=== PATIENT | female | born 1985 | race Caucasian/White ===

== ENCOUNTER 2023-10-07 06:30 | Day surgery (SDC) | payer OTHER ==
[2023-10-07] MEDS ORDERED: fentaNYL 100 MCG/2 ML SDV IV ONE (06:31)
[2023-10-07] MEDS ORDERED: Midazolam 1 MG/ML 2 ML SDV IV ONE (06:31)
[2023-10-07] MEDS ORDERED: fentaNYL 100 MCG/2 ML SDV ONE (06:39)
[2023-10-07] MEDS ORDERED: Midazolam 1 MG/ML 2 ML SDV ONE (06:39)
[2023-10-07] MEDS: fentaNYL 100 MCG/2 ML SDV IV ONE ×5 (07:21→07:39)
[2023-10-07] MEDS: Midazolam 1 MG/ML 2 ML SDV IV ONE ×6 (07:22→07:33)
[2023-10-07] MEDS: Dextrose 5%-0.45% NaCl 1,000 ML IV SCH (08:02)
== END 2023-10-07 09:54 | disposition home or self-care (01) ==
LOC: DL.ENDO 06:30
PROVIDERS: ATTEND Internal Medicine Gastroenterology
DX: Z12.11 Encounter for screening for malignant neoplasm of colon (principal); D12.5 Benign neoplasm of sigmoid colon; E66.09 Other obesity due to excess calories; Z68.25 Body mass index [BMI] 25.0-25.9, adult; Z91.048 Other nonmedicinal substance allergy status
CPT/HCPCS: 45385; 81025; J2250; J3010; J7042

== ENCOUNTER 2025-03-19 09:27 | Inpatient (IN) | payer MEDICAID, OTHER ==
[2025-03-19] MEDS: Lactated Ringers 1,000 ML IV SCH ×2 (09:50→11:04)
[2025-03-19] MEDS ORDERED: Carboprost Tromethamine 250 MCG/1 ML Amp IM PRN ×2 (10:00→13:19)
[2025-03-19] MEDS ORDERED: Oxytocin/Lactated Ringers 30 UNIT/500 ML BAG IV SCH (10:00)
[2025-03-19] MEDS ORDERED: Oxytocin 10 Units/1 ML SDV IM PRN (10:00)
[2025-03-19] MEDS ORDERED: Sodium Chloride 0.9% 10 ML Syringe FLUSH PRN (10:00)
[2025-03-19 10:04] LABS: BASOPHILS PERCENT AUTO 0.2 % (0.0-1.0); EOSINOPHILS PERCENT AUTO 0.7 % (1.0-3.0); LYMPHOCYTES PERCENT AUTO 15.9 % (20.5-50.1); MONOCYTES PERCENT AUTO 5.5 % (2-8); NEUTROPHILS PERCENT AUTO 77.7 % (42.2-75.2); PLATELET COUNT,PLT 134 10^3/uL (150-450); RED BLOOD CELL COUNT 3.91 10^6/uL (4.2-5.4); WHITE BLOOD CELL COUNT,WBC 8.4 10^3/uL (5.0-10.0)
[2025-03-19] MEDS ORDERED: Oxytocin/Normal Saline 30 UNIT/500 ML BAG ONE (10:33)
[2025-03-19] MEDS ORDERED: Ondansetron 4 MG/2 ML SDV IVPUSH PRN (13:19)
[2025-03-19] MEDS ORDERED: ePHEDrine 50 MG/ML SDV IVPUSH PRN (13:19)
[2025-03-19] MEDS: Oxytocin/Normal Saline 30 UNIT/500 ML BAG IV SCH (13:29)
[2025-03-19] MEDS ORDERED: Lactated Ringers 1,000 ML IV SCH (13:30)
[2025-03-19] MEDS: diphenhydrAMINE 50 MG/ML SDV IVPUSH PRN (15:20)
[2025-03-19] MEDS ORDERED: Dexamethasone 4 MG/ML SDV ONE (15:21)
[2025-03-19] MEDS ORDERED: Ondansetron 4 MG/2 ML SDV ONE (15:21)
[2025-03-19] MEDS ORDERED: ePHEDrine 50 MG/ML SDV ONE (15:22)
[2025-03-19 16:47] LABS: CREATININE,URINE RAND < 13.00 mg/dL (No establ ref range); PROTEIN,URINE RANDOM < 6.0 mg/dL (0.0-11.9)
[2025-03-19] MEDS: Acetaminophen/oxyCODONE 325-5 MG Tab PO PRN (17:37)
[2025-03-19] MEDS: Sodium Chloride 0.9% 10 ML Syringe FLUSH SCH (22:31)
[2025-03-20] MEDS: Acetaminophen/oxyCODONE 325-5 MG Tab PO PRN (04:07)
[2025-03-20 05:57] LABS: PLATELET COUNT,PLT 118.0 10^3/uL (150-450); RED BLOOD CELL COUNT 3.36 10^6/uL (4.2-5.4); WHITE BLOOD CELL COUNT,WBC 11.3 10^3/uL (5.0-10.0)
[2025-03-20] MEDS: Prenatal Multivitamin with Calcium/Folic Acid/Iron Tab PO SCH (07:17)
== END 2025-03-21 10:15 | disposition home or self-care (01) | DRG 787 ==
LOC: DL.MS 09:27 → UNDOADMOB 09:27 → DL.MS 12:27 → OBSVTOIN 12:27
PROVIDERS: ADMIT Family Medicine; ATTEND Family Medicine
PROC: 10D00Z1 Extraction of Products of Conception, Low, Open Approach (ICD-10-PCS; principal; 2025-03-19 12:00)
DX: O34.211 Maternal care for low transverse scar from previous cesarean delivery (principal); O99.12 Other diseases of the blood and blood-forming organs and certain disorders involving the immune mechanism complicating childbirth; D69.6 Thrombocytopenia, unspecified; Z3A.39 39 weeks gestation of pregnancy; Z37.0 Single live birth; Z86.16 Personal history of COVID-19; Z98.890 Other specified postprocedural states; Z90.49 Acquired absence of other specified parts of digestive tract; Z79.899 Other long term (current) drug therapy; Z79.82 Long term (current) use of aspirin
CPT/HCPCS: 36415; 59025; 82570; 84156; 85025; 85027; 86850; 86900; 86901; A9270-GY; J1200; J2590; J7120